=== PATIENT | male | born 1990 | race Caucasian/White ===

== ENCOUNTER 2020-10-28 13:43 | Outpatient (CLI) | payer OTHER | END 2020-10-28 21:38 | disposition home or self-care (01) | LOC: MLB 13:43 → MRD 21:38 | PROVIDERS: ATTEND Internal Medicine Geriatric Medicine | DX: M54.5 Low back pain (principal) | CPT/HCPCS: 72100 ==

== ENCOUNTER 2020-10-29 11:35 | Outpatient (CLI) | payer OTHER ==
[2020-10-29 12:06] LABS: BASOPHILS % (AUTO) 0.6 % (0.0-2.0); EOSINOPHILS # (AUTO) 0.2 K/uL (0-0.4); EOSINOPHILS % (AUTO) 3.1 % (0.0-4.0); HEMATOCRIT 46.5 % (36-52); HEMOGLOBIN 15.8 g/dL (12.0-18.0); LYMPHOCYTES # (AUTO) 3.2 K/uL (2.0-11.5); LYMPHOCYTES % (AUTO) 40.6 % (20.5-51.1); MEAN CORPUSCULAR HEMOGLOBIN 32 pg (27-31); MEAN CORPUSCULAR HGB CONC 34 g/dL (33-37); MEAN CORPUSCULAR VOLUME 95.1 fL (80-94); MONOCYTES # (AUTO) 0.5 K/uL (0.8-1.0); MONOCYTES % (AUTO) 6.3 % (1.7-9.3); NEUTROPHILS # (AUTO) 3.9 K/uL (1.8-7.7); NEUTROPHILS % (AUTO) 49.4 % (42.2-75.2); PLATELET COUNT (AUTO) 221 K/uL (140-450); RED BLOOD CELL COUNT(AUTO) 4.89 MIL/uL (4.20-6.10); RED CELL DISTRIBUTION WIDTH 13.2 % (11.6-13.7); WHITE BLOOD COUNT (AUTO) 7.9 K/uL (4.8-10.8)
[2020-10-29 12:25] LABS: ALBUMIN 4.2 g/dL (3.4-5.0); CHOL/HDL RATIO 5.9 (1-4.5); THYROID STIMULATING HORMONE 1.45 uIU/mL (0.34-3.74); TOTAL BILIRUBIN 0.4 mg/dL (0.0-1.0)
== END 2020-10-29 21:42 | disposition home or self-care (01) ==
LOC: MLB 11:35
PROVIDERS: ATTEND Internal Medicine Geriatric Medicine
DX: Z00.00 Encounter for general adult medical examination without abnormal findings (principal)
CPT/HCPCS: 36415; 80053; 82306; 83036; 84443; 85025